=== PATIENT | female | born 1970 | race Caucasian/White ===

== ENCOUNTER → 2018-04-19 | Outpatient (CLI) | payer BC, OTHER ==
[~2018-04-19] MED LIST: CELEBREX 200 M200 M1 PO; COLACE100 MG PO; COSENTYX P150 MG/11 SUBQ; FLEXERIL PO; FOLIC ACID1 MG PO; HYDROCODON-ACE1 EAC7 PO; HYDROCODONE-APA1 TA1 PO; IBUPROFEN 200200 M1 PO; IBUPROFEN 600600 M1 PO; LEXAPRO 10 MG T10 M1 PO; MEDROLDOSEPACK PO; METHOTREXA25 MG/1 M7 SUBQ; METHOTREXATE 22.5 M1 PO; MOBIC15 MG PO; NORCO 5-325 TA1 EACH PO; NORFLEX100 MG PO; PRAVACHOL 20 MG20 M1 PO; PRAVACHOL40 MG PO; PREDNISONE 5 MG5 M1 PO; PRILOSEC 20 MG20 MG PO; REMICADE 1100 MG/VIA IV; ROBAXIN 750 MG750 M1 PO; SIMETHICON CHEW80 M1 PO; TRAMADOL 50 MG50 MG PO; VITAMIN D50000 UNIT PO; ZOLOFT100 MG PO
== END ==
LOC: RAD 02:58
DX: Z12.31 Encounter for screening mammogram for malignant neoplasm of breast (principal)

== ENCOUNTER → 2019-08-11 | Outpatient (CLI) | payer BC, OTHER | LOC: RAD 12:47 | DX: Z12.31 Encounter for screening mammogram for malignant neoplasm of breast (principal) ==